=== PATIENT | female | born 1955 | race Caucasian/White ===

== ENCOUNTER 2018-05-30 11:55 | Emergency (ER) | payer OTHER ==
--- NOTE | 2018-05-30 13:07 | RAD ---
INDICATION: Left hip pain. COMPARISON: There are no prior studies available for comparison. TECHNIQUE: An AP view of the pelvis and frontal and lateral views of the left hip were obtained. FINDINGS: The bones are in normal alignment. No fracture is seen. There is mild bilateral osteoarthritic change in the hips. IMPRESSION: MILD BILATERAL OSTEOARTHRITIC CHANGE IN THE HIPS.
--- NOTE | 2018-05-30 16:08 | UC ---
Mg Jack Natalie, scribed for Dexter Carpenter MD on 05/30/18 at 1418 . Hip/Pelvis Pain - HPI Summary HPI Summary: The patient is a 63 y/o F presenting to [facility] c/o hurting left hip last night. She was dancing when she heard her hip pop. She did not fall, and she continued to dance with some pain. She had ambulated afterwards, although ambulation movement of the hip, and putting weight on the hip aggravates the pain. She states she feels stiff, and walking loosens the pain. Paints to the lateral aspect of her hip and denies groin pain. The pain is rated 2/10 in severity, and has not worsened much since onset. She has been taking Ibuprofen to alleviate some of the pain. She denies numbness or tingling in pain, incontinence, pelvic pain, and neck pain. She has not had any past hip pain. She did not fall. No allergies. - History Of Current Complaint Chief Complaint: UCLowerExtremity Stated Complaint: HIP INJURY Time Seen by Provider: 05/30/18 12:18 Hx Obtained From: Patient Onset/Duration: Sudden Onset, Lasting Hours - starting last night, Still Present Severity Initially: Mild Severity Currently: Mild Pain Intensity: 2 Pain Scale Used: 0-10 Numeric Location: Discrete At: - left hip Character Of Pain: Stiffness Aggravating Factor(s): Movement, Weight Bearing Alleviating Factor(s): Rest Associated Signs And Symptoms: Positive: Other - NEGATIVE: numbness or tingling in legs, incontinence, neck pain, pelvic pain. Negative: Redness, Bruising - Allergies/Home Medications Allergies/Adverse Reactions: Allergies Allergy/AdvReac Type Severity Reaction Status Date / Time No Known Allergies Allergy Verified 05/30/18 12:12 Home Medications: Home Medications Azelastine 0.15% NASAL(NF) [Astepro 0.15% NASAL (NF)] 2 spray NASAL DAILY [History Confirmed 05/30/18] Fluticasone NASAL SPRAY 50MCG* [Flonase NASAL SPRAY 50MCG*] 2 spray NASAL DAILY 05/30/18 [History Confirmed 05/30/18] Levothyroxine TAB* [Synthroid 75 MCG TAB*] 1 tab PO DAILY 05/30/18 [History Confirmed 05/30/18] PMH/Surg Hx/FS Hx/Imm Hx - Additional Past Medical History Additional PMH: NEGATIVE: past hx of hip pain Previously Healthy: Yes Other Endocrine History: NEGATIVE: diabetes Other Cardiovascular History: NEGATIVE: HTN Other Respiratory History: negative Other GI/ History: negative Other Neurological History: negative Other Psychological History: negative - Surgical History Surgical History: Yes Surgery Procedure, Year, and Place: Carpal tunnel - Family History Known Family History: Negative: Hypertension, Diabetes - Social History Alcohol Use: None Substance Use Type: None Smoking Status (MU): Never Smoked Tobacco Review of Systems Skin: Negative Eyes: Negative ENT: Negative Respiratory: Negative Cardiovascular: Negative Gastrointestinal: Negative, Other - NEGATIVE: incontinence Genitourinary: Negative, Other - NEGATIVE: incontinence, pelvic pain Motor: Negative Neurovascular: Negative Musculoskeletal: Other: - POSITIVE: left hip pain; NEGATIVE: neck pain Neurological: Negative, Other - NEGATIVE: numbness or tingling in legs Psychological: Negative Is Patient Immunocompromised?: No All Other Systems Reviewed And Are Negative: Yes Physical Exam - Summary Physical Exam Summary: Appearance: Well-Appearing, No Pain Distress, Well-Nourished Eyes: conjunctiva clear, no discharge ENT: Hearing grossly normal, no muffled/hoarse voice. Neck: Normal, Supple Respiratory/Lung Sounds: Lungs clear, Normal breath sounds, No respiratory distress, No accessory muscle use Cardiovascular: RRR, No murmur Abdomen: Nontender, Soft, no guarding, not distended Bowel Sounds: Present Musculoskeletal: Spine: No spine or paraspinal tenderness , FROM with tenderness only in the left greater trochanter, reflexes good, straight leg raise and slump test are negative, no bruising Left hip: tender at greater trochanter , and the gluteus medius,Full ROM, ANTHONY postive for some pain in lateral aspect . Weakness and reproduction of pain with resisted testing of gluteus medius. Trendelenburg test is positive. Neurological: Alert, muscle tone normal Psychiatric:Normal, age appropriate behavior Skin: Normal, Warm, Dry, Normal color Triage Information Reviewed: Yes Vital Signs: Initial Vital Signs Temp 97.2 F 05/30/18 12:09 Pulse 70 05/30/18 12:09 Resp 12 05/30/18 12:09 BP 116/75 05/30/18 12:09 Pulse Ox 100 07/08/18 12:09 Vital Signs Reviewed: Yes Diagnostics - Radiology Hip/Pelvis XR Xray Interpretation: Positive (See Comments) - Mild bilateral osteoarthritic change in the hips. [facility] physician has reviewed this report. Radiology Interpretation Completed By: Radiologist Hip Injury Course/Dx - Course Course Of Treatment: The patient is a 63 y/o F presenting to [facility] c/o hurting left hip after dancing last night. She did not fall on the hip. She is able to walk, although ambulation, movement, and weightbaring cause aggravation. She has taken Ibuprofen for some relief. She denies numbness or tingling in pain, incontinence, pelvic pain, and neck pain. She has not had an previous injury to the hip. Medications reviewed. Allergies noted. In the [facility], the Hip/Pel XR shows mild arthritis(Final report: MILD BILATERAL OSTEOARTHRITIC CHANGE IN THE HIPS.). Patient will be discharged with instructions for hip pain. She is advised to follow up with her PCP and orthopedics in one [place] in [place]. She is advised to start PT for gluteus medius. Patient is agreeable with this plan. - Differential Dx/Diagnosis Provider Diagnoses: gluteus medius strain, osteoarthritis Discharge - Sign-Out/Discharge Documenting (check all that apply): Discharge/Admit/Transfer - Pt will be discharged home. - Discharge Plan Condition: Stable Disposition: HOME Patient Education Materials: Hip Sprain (ED) Referrals: No Primary Care Phys,NOPCP [Primary Care Provider] - Additional Instructions: Follow up with your primary care doctor and orthopedics in 1 week in your home town. Start Physical therapy. Return to Urgent care / ER if symptoms get worse. - Billing Disposition and Condition Condition: STABLE Disposition: Home The documentation as recorded by the Mg lindquist Natalie accurately reflects the service I personally performed and the decisions made by me, Dexter Carpenter MD.
== END 2018-05-30 13:24 | disposition home or self-care (01) ==
LOC: UCEAST 11:55
DX: S76.912A Strain of unspecified muscles, fascia and tendons at thigh level, left thigh, initial encounter (principal); X58.XXXA Exposure to other specified factors, initial encounter; Y93.41 Activity, dancing; Y92.9 Unspecified place or not applicable; M16.12 Unilateral primary osteoarthritis, left hip
CPT/HCPCS: 99201; G0463